=== PATIENT | female | born 1960 | race Caucasian/White ===

== ENCOUNTER 2016-03-27 09:02 | Emergency (ER) | payer BC ==
[~2016-03-27] VITALS: Ht 162.6 cm; Wt 67.0 kg
[2016-03-27 09:06] VITALS: TEMP 36.4; Ht 162.6 cm; Wt 67.0 kg
[2016-03-27] MEDS ORDERED: ASPI81TA28 PO (09:36)
[2016-03-27] MEDS ORDERED: ACETAMINOPHEN 500 MG TAB PO STA (09:39)
[2016-03-27] MEDS ORDERED: IBUPROFEN 200 MG TAB PO STA (09:39)
[2016-03-27 09:51] LABS: BASO % 0.3 %; BASO ABS # 0.02 K/uL (0-0.2); COMPLETE YES; HEMATOCRIT 43.3 % (37-47); IG% 0.3 %; LYMPH % 37.3 %; LYMPH ABS # 2.21 K/uL (1.2-3.4); MEAN CELL VOLUME 91.9 fL (80-100); MEAN CORPUSCULAR HEMOGLOBIN 31.8 pg (25-34); MEAN CORPUSCULAR HGB CONC 34.6 g/dl (32-36); MEAN PLATELET VOLUME 10.5 fL (7.4-10.4); MONO % 8.3 %; NEUT % 50.8 %; PLATELET COUNT 224 K/uL (130-400); RED BLOOD COUNT 4.71 M/uL (4.2-5.4); WHITE BLOOD COUNT 5.92 K/uL (4.8-10.8)
--- NOTE | 2016-03-27 09:58 | EMERGENCY ROOM VISIT NOTE ---
History Report prepared by Robert: Venus Wiggins Under the Supervision of: Dr. Laurie Campuzano M.D. First contact with patient: 09:31 Chief Complaint: SHORTNESS OF BREATH Stated Complaint: CHEST PAIN,SOB,SWEATING Nursing Triage Summary: pt to the ED with right sided chest pain and jaw/teeth pain that started last night and RIZZO with right sided facial numbness and pain that started yesterday afternoon that has gotten better but has not gone away History of Present Illness The patient is a 56 year old female who presents to the Emergency Room with complaints of worsening shortness of breath starting a few months ago. For the past 6 months, the patient has been waking up with severe diaphoresis at night. She also reports intermittent heart palpation. For the past few weeks, she has had increased tiredness. She has worsening shortness of breath with exertion. Last night, part of the right side of her face became numb for a few minutes. Yesterday, she started having pain and swelling in lower extremities. She also had an episode of dizziness yesterday. She has had a headache occurring for the past 3 days. Last week, she had a chest CT with contrast with normal results. She also had a test for blood clots with normal results. She travels from [place] to [place] every week. She denies any stress tests. The patient currently denies any pain but continues to complain of difficulty breathing. The patient denies any blood thinners. She has a history of high cholesterol. She denies any personal history of heart or lung disease. She has family history of aneurysms. The patient currently denies any chest pain, abdominal pain, or any other complaints. Source of History: patient Onset: a few months ago Position: other (global) Symptom Intensity: No pain Quality: other (shortness of breath) Timing: worsening Modifying Factors (Worsening): exertion Associated Symptoms: + headache, + numbness, No abdominal pain, No chest pain Review of Systems See HPI for pertinent positives & negatives. A total of 10 systems reviewed and were otherwise negative. Past Medical & Surgical Medical Problems: (1) H/O parathyroid disease (2) High cholesterol Surgical Problems: (1) Hx of tonsillectomy Family History Aneurysm FH: cancer FH: heart disease Social History Smoking Status: Never Smoker Alcohol Use: none Marital Status: in relationship Occupation Status: employed Current/Historical Medications Scheduled Aspirin (Aspirin Ec), 3 TAB PO DAILY Allergies Coded Allergies: Gluten (Verified Allergy, Mild, rash, h/a, 06/13/15) Food Additives (Verified Allergy, Unknown, redness, ichting,congestion,he, bloating, 06/13/15) Sulfites (Verified Allergy, Unknown, redness,itching, 06/13/15) Physical Exam Vital Signs Date Time Temp Pulse Resp B/P Pulse Ox O2 Delivery O2 Flow Rate FiO2 03/27/16 15:19 79 18 105/72 95 03/27/16 13:29 79 16 126/82 03/27/16 12:30 64 118/87 98 03/27/16 12:00 60 18 100/67 96 03/27/16 10:44 62 16 98/77 97 03/27/16 10:33 97 Room Air 03/27/16 10:32 68 110/74 95 Room Air 03/27/16 10:23 77 99 Room Air 03/27/16 09:57 60 104/72 03/27/16 09:56 60 104/72 70 117/73 85 109/80 03/27/16 09:15 78 03/27/16 09:06 36.4 88 16 118/83 97 Room Air Physical Exam CONSTITUTIONAL: Mildly anxious HEENT: No icterus, moist mucous membranes NECK: No meningismus, trachea is midline. CARDIOVASCULAR: Regular rate, normal perfusion RESPIRATORY: Unlabored breathing. Clear to auscultation. GASTROINTESTINAL: Non-tender GENITOURINARY: No flank tenderness MUSCULOSKELETAL: Full range of motion NEUROLOGIC: No acute gross focal deficits. PSYCHIATRIC: Normal affect SKIN: Normal for ethnicity. Medical Decision & Procedures ER Provider Diagnostic Interpretation: X-ray results as stated below per interpretation by me and the radiologist. CHEST ONE VIEW PORTABLE CLINICAL HISTORY: Chest pain and shortness of breath COMPARISON STUDY: 06/13/2015 FINDINGS: The cardiac and mediastinal contours are normal. There is no evidence of focal pulmonary consolidation. There is no evidence of failure. No pleural effusions are visualized.[ IMPRESSION: No active disease in the chest. Electronically signed by: Janes Belle M.D. 03/27/2016 10:36 AM Dictated Date/Time: 03/27/2016 10:[address] results as stated below per my review and radiologist interpretation. CT HEAD WITHOUT CONTRAST (CT) CLINICAL HISTORY: Severe headache COMPARISON STUDY: 04/27/2011 TECHNIQUE: Axial CT of the brain is performed from the vertex to the skull base. IV contrast was not administered for this examination. CT DOSE: 614.27 mGy.cm FINDINGS: No intra or extra-axial mass lesions are visualized. There is no CT evidence of acute cortical infarction. There is no evidence of midline shift. There is no acute hemorrhage. No calvarial fractures are visualized. There is no evidence of pathologic ventricular dilatation. There is no evidence of acute sinusitis IMPRESSION: No acute intracranial findings Electronically signed by: Janes Belle M.D. 03/27/2016 10:18 AM Dictated Date/Time: 03/27/2016 10:18 AM Laboratory Results 03/27/16 09:14 Red Blood Count 4.71, Mean Corpuscular Volume 91.9, Mean Corpuscular Hemoglobin 31.8, Mean Corpuscular Hemoglobin Concent 34.6, Mean Platelet Volume 10.5, Neutrophils (%) (Auto) 50.8, Lymphocytes (%) (Auto) 37.3, Monocytes (%) (Auto) 8.3, Eosinophils (%) (Auto) 3.0, Basophils (%) (Auto) 0.3, Neutrophils # (Auto) 3.00, Lymphocytes # (Auto) 2.21, Monocytes # (Auto) 0.49, Eosinophils # (Auto) 0.18, Basophils # (Auto) 0.02 03/27/16 09:14 Test 03/27/16 09:14 03/27/16 11:47 White Blood Count 5.92 K/uL (4.8-10.8) Red Blood Count 4.71 M/uL (4.2-5.4) Hemoglobin 15.0 g/dL (12.0-16.0) Hematocrit 43.3 % (37-47) Mean Corpuscular Volume 91.9 fL (80-100) Mean Corpuscular Hemoglobin 31.8 pg (25-34) Mean Corpuscular Hemoglobin Concent 34.6 g/dl (32-36) Platelet Count 224 K/uL (130-400) Mean Platelet Volume 10.5 fL (7.4-10.4) Neutrophils (%) (Auto) 50.8 % Lymphocytes (%) (Auto) 37.3 % Monocytes (%) (Auto) 8.3 % Eosinophils (%) (Auto) 3.0 % Basophils (%) (Auto) 0.3 % Neutrophils # (Auto) 3.00 K/uL (1.4-6.5) Lymphocytes # (Auto) 2.21 K/uL (1.2-3.4) Monocytes # (Auto) 0.49 K/uL (0.11-0.59) Eosinophils # (Auto) 0.18 K/uL (0-0.5) Basophils # (Auto) 0.02 K/uL (0-0.2) RDW Standard Deviation 42.6 fL (36.4-46.3) RDW Coefficient of Variation 12.6 % (11.5-14.5) Immature Granulocyte % (Auto) 0.3 % Immature Granulocyte # (Auto) 0.02 K/uL (0.00-0.02) Prothrombin Time 10.4 SECONDS (9.0-12.0) Prothromb Time International Ratio 1.0 (0.9-1.1) Activated Partial Thromboplast Time 26.4 SECONDS (21.0-31.0) Partial Thromboplastin Ratio 1.0 D-Dimer < 190 ug/L FEU (0-500) Anion Gap 10.0 mmol/L (3-11) Est Creatinine Clear Calc Drug Dose 79.8 ml/min Estimated GFR () 104.0 Estimated GFR (Non- 89.7 BUN/Creatinine Ratio 18.3 (10-20) Calcium Level 8.8 mg/dl (8.5-10.1) Magnesium Level 1.9 mg/dl (1.8-2.4) Total Bilirubin 0.5 mg/dl (0.2-1) Direct Bilirubin 0.1 mg/dl (0-0.2) Aspartate Amino Transf (AST/SGOT) 15 U/L (15-37) Alanine Aminotransferase (ALT/SGPT) 27 U/L (12-78) Alkaline Phosphatase 54 U/L (45-117) Total Protein 7.0 gm/dl (6.4-8.2) Albumin 3.9 gm/dl (3.4-5.0) Troponin I < 0.015 ng/ml (0-0.045) Labs reviewed by ED physician. Medications Administered Medications (Trade) Dose Ordered Sig/Drea Route Start Time Stop Time Status Last Admin Dose Admin Acetaminophen (Tylenol Tab) 1,000 mg NOW STAT PO 03/27/16 09:39 03/27/16 09:45 DC 03/27/16 09:54 1,000 MG Ibuprofen (Advil Tab) 400 mg NOW STAT PO 03/27/16 09:39 03/27/16 09:45 DC 03/27/16 09:55 400 MG Aspirin (Aspirin Chew) 81 mg STK-MED ONCE .ROUTE 03/27/16 11:23 03/27/16 11:25 DC 03/27/16 11:23 81 MG ECG Indication: SOB/dyspnea Rate (beats per minute): 68 Rhythm: sinus rhythm Findings: nonspecific-ST abn, no ectopy, other (Normal axis) ED Course 0931: Past medical records reviewed. The patient was evaluated in room A03. A complete history and physical examination was performed. 0939: Advil Tab 400 mg PO, Tylenol Tab 1000 mg PO 0954: I discussed the patient's case with Dr. Victoria, flight communications specialist with [facility]. 1123: Aspirin 81 mg PO 1301: The patient will receive a stress test. 1308: Upon reexamination the patient is resting comfortably. I discussed results and treatment plan with the patient. She verbalizes agreement and understanding. The patient is ready for discharge. Medical Decision Differential diagnosis includes but is not limited to heart disease, anxiety, PE , viral syndrome. 56-year-old presented to the emergency department for evaluation of episodes of diaphoresis, especially at night for several months as well as exertional dyspnea. She notes she has seen her primary doctor and had a negative CT scan for pulmonary embolus. Review of systems notable for headache for the last 3 days. Patient has particular concern over commuting and trouble accessing care. This 56-year-old female is noted to not have had a previous cardiac evaluation. EKG and troponin within normal limits. Dr. Victoria, cardiology, kindly came to the emergency room to evaluate patient and subsequent stress testing was normal. Patient advised to follow-up with her primary doctor. Consults Time Called: 49 Consulting Physician: Dr. Victoria, flight communications specialist with [facility] Returned Call: [phone] I discussed the patient's case with Dr. Victoria, flight communications specialist with [facility]. Impression Primary Impression: Dyspnea Scribe Attestation The scribe's documentation has been prepared under my direction and personally reviewed by me in its entirety. I confirm that the note above accurately reflects all work, treatment, procedures, and medical decision making performed by me. Departure Information Dispostion Being Evaluated By Hospitalist Referrals Emmanuel Ojeda MD (PCP) Patient Instructions [facility]
[2016-03-27 10:05] LABS: ALT/SGPT 27 U/L (12-78); AST/SGOT 15 U/L (15-37); BLOOD UREA NITROGEN 14 mg/dl (7-18); BUN/CREATININE RATIO 18.3 (10-20); CALCIUM 8.8 mg/dl (8.5-10.1); CARBON DIOXIDE 29 mmol/L (21-32); CHLORIDE 105 mmol/L (98-107); CREATININE 0.75 mg/dl (0.60-1.20); GLUCOSE 98 mg/dl (70-99); MAGNESIUM 1.9 mg/dl (1.8-2.4); POTASSIUM 3.6 mmol/L (3.5-5.1); SODIUM 144 mmol/L (136-145)
[2016-03-27 10:10] LABS: ALKALINE PHOSPHATASE 54 U/L (45-117)
--- NOTE | 2016-03-27 10:20 | DIAGNOSTIC IMAGING REPORT ---
CT HEAD WITHOUT CONTRAST (CT) CLINICAL HISTORY: Severe headache COMPARISON STUDY: 04/27/2011 TECHNIQUE: Axial CT of the brain is performed from the vertex to the skull base. IV contrast was not administered for this examination. CT DOSE: 614.27 mGy.cm FINDINGS: No intra or extra-axial mass lesions are visualized. There is no CT evidence of acute cortical infarction. There is no evidence of midline shift. There is no acute hemorrhage. No calvarial fractures are visualized. There is no evidence of pathologic ventricular dilatation. There is no evidence of acute sinusitis IMPRESSION: No acute intracranial findings Electronically signed by: Janes Belle M.D. 03/27/2016 10:18 AM Dictated Date/Time: 03/27/2016 10:18 AM
[2016-03-27 10:32] LABS: PROTHROMBIN TIME (PATIENT) 10.4 SECONDS (9.0-12.0)
[2016-03-27 10:33] VITALS: O2SAT 97
[2016-03-27] MEDS ORDERED: ASPIRIN 324 MG CHEW PO STA (10:37)
--- NOTE | 2016-03-27 10:38 | DIAGNOSTIC IMAGING REPORT ---
CHEST ONE VIEW PORTABLE CLINICAL HISTORY: Chest pain and shortness of breath COMPARISON STUDY: 06/13/2015 FINDINGS: The cardiac and mediastinal contours are normal. There is no evidence of focal pulmonary consolidation. There is no evidence of failure. No pleural effusions are visualized.[ IMPRESSION: No active disease in the chest. Electronically signed by: Janes Belle M.D. 03/27/2016 10:36 AM Dictated Date/Time: 03/27/2016 10:36 AM
[2016-03-27] MEDS ORDERED: ASPIRIN 81 MG CHEW ONE (11:23)
--- NOTE | 2016-03-27 14:25 | EXERCISE STRESS ECHO ---
*NOTICE TO RECEIVING [employer] This information is strictly Confidential and protected under [place] law. [place] law prohibits you from making any further disclosure of this information unless further disclosure is expressly permitted by the written consent of the person to whom it pertains or is authorized by law. A general authorization for the release of medical or other information is not sufficient for this purpose. Hospital accepts no responsibility if the information is made available to any other person, INCLUDING THE PATIENT. Interpretation Summary * Name: DIANA GARIBAY Study Date: 03/27/2016 12:28 PM BP: 101/72 mmHg * Patient Location: ED HR: 59 * : 1960 (M/d/yyyy) Gender: Female Height: 64 in * Age: 56 yrs Ethnicity: CA Weight: 147 lb * Ordering Physician: Laurie Campuzano * Referring Physician: MEME * Performed By: Dayami Sims RDCS * * Reason For Study: CHEST PAIN, SOB * BSA: 1.7 m2 * History: CHEST PAIN, SOB * -- Conclusions -- * Normal stress echocardiogram at 8.0 METS and a peak heart rate of 85% maximum predicted. * No exercise induced chest pain. * No EKG changes. * Baseline echocardiogram notes normal left ventricular systolic function. Procedure Details * ECHOEX, CPT #25121 Left Ventricle * The left ventricle is normal in size. * There is normal left ventricular wall thickness. * Ejection Fraction = 60-65%. * Resting wall motion: Normal. Stress wall motion: Appropriate increase in Left ventricular systolic function and decrease in cavity size. No stress induced segmental wall motion abnormalities. Stress Parameters * Normal baseline electrocardiogram. * Stress ECG: No ST changes. No arrhythmias. * The stress portion of this study was personally supervised by the undersigned interpreting physician. * Rest heart rate was '59' BPM. * Rest blood pressure was '101/72' * Maximum heart rate achieved was 139 bpm. * Maximum heart rate was 84 % of maximum age-predicted heart rate. * Maximum blood pressure was '132/78' * Total exercise time was '7:14' * Maximum exercise MET level achieved was '8.90' METS * Maximum treadmill speed was '3.40' miles per hour. * Maximum treadmill elevation was '14.00'% grade. * Exercise was terminated due to 'ACHIEVING TARGET HR' MMode 2D Measurements and Calculations LVAd ap4 25.0 cm\S\2 LVLd ap4 7.6 cm EDV(MOD-sp4) 69.1 ml EDV(sp4-el) 70.3 ml LVAs ap4 13.8 cm\S\2 LVLs ap4 6.2 cm ESV(MOD-sp4) 27.7 ml ESV(sp4-el) 26.0 ml EF(MOD-sp4) 59.9 % EF(sp4-el) 63.0 % LVAd ap2 23.9 cm\S\2 LVLd ap2 7.8 cm EDV(MOD-sp2) 61.1 ml EDV(sp2-el) 62.0 ml LVAs ap2 12.8 cm\S\2 LVLs ap2 6.1 cm ESV(MOD-sp2) 23.9 ml ESV(sp2-el) 22.9 ml EF(MOD-sp2) 60.9 % EF(sp2-el) 63.1 % LVLd %diff 3.1 % EDV(MOD-bp) 66.6 ml LVLs %diff -2.36 % ESV(MOD-bp) 25.7 ml EF(MOD-bp) 61.4 % SV(MOD-sp4) 41.4 ml SI(MOD-sp4) 24.1 ml/m\S\2 SV(MOD-sp2) 37.2 ml SI(MOD-sp2) 21.7 ml/m\S\2 SV(MOD-bp) 40.9 ml SI(MOD-bp) 23.8 ml/m\S\2 SV(sp4-el) 44.3 ml SI(sp4-el) 25.8 ml/m\S\2 SV(sp2-el) 39.1 ml SI(sp2-el) 22.8 ml/m\S\2 Doppler Measurements and Calculations TR max isela 199.5 cm/sec
--- NOTE | 2016-03-27 14:50 | CARDIOLOGY CONSULTATION ---
DATE OF CONSULTATION: 03/27/2016 CONSULTATION REQUESTED BY: Dr. Campuzano. REASON FOR CONSULTATION: Chest discomfort. HISTORY OF PRESENT ILLNESS: Ms. Rankin is a very pleasant 56-year-old woman who presented to [facility] Emergency Department today with a complaint of jaw discomfort and dyspnea with exertion. The patient states that her symptoms started several months ago. Initially, began with dyspnea on exertion, which she chalked up to lung disease secondary to occupational exposure to saw dust. The patient travels in between [place] and [place] and was most recently seen by her physician in [place], where she was told she had no lung problems, but was recommended that she see a cook fishing vessel. The patient states that ever since then, her dyspnea has been significantly worsening to the point where now she is becoming more and more short of breath with less and less activity. Now, she states that any activity whatsoever will make her short of breath. Associated with this shortness of breath, there is also chest discomfort. She states that over the last month or so, she states that whenever she exerts herself, she will get a concomitant chest discomfort. She describes it as right-sided heaviness sensation that was associated with diaphoresis, nausea, and occasional lightheadedness. She states that she kept putting off getting evaluated because she thought that if it was from her heart she would get chest discomfort on the left side. Her symptoms progressed to the point where last night, she developed a funny feeling in her jaw associated with chest discomfort and dyspnea with exertion, which was new and she finally came into the Emergency Department to be evaluated. In the Emergency Department, her EKG was unremarkable, initial troponin was negative and cardiology was consulted. Currently, she states that she is still having some slight tightness at rest and overall, just feels fatigued and worn down. PAST SURGICAL HISTORY: 1. Uterine embolization. 2. Parathyroidectomy. MEDICAL ILLNESSES: 1. Seasonal allergies. 2. Colon polyp. 3. History of Lyme disease. FAMILY HISTORY: Remarkable for mother of aneurysm in her 60s. She states that multiple people on her mother's family had aneurysms as well. Denies any premature coronary artery disease or sudden cardiac . SOCIAL HISTORY: The patient denies any tobacco use. Drinks occasional alcohol. Denies any recreational drug use. She is . She has 1 child, who is in good health. 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 She does not exercise. REVIEW OF SYSTEMS: As per HPI, all other review of systems reviewed and negative at this time. ALLERGIES: No known drug allergies. MEDICATIONS: Denies. PHYSICAL EXAMINATION: VITALS: Temperature afebrile, pulse 62, respiratory rate 12, and blood pressure 90/77. GENERAL: Awake, alert, and oriented x3, in no acute distress. HEENT: Normocephalic and atraumatic. Pupils are equal, round, and reactive to light and accommodation. Extraocular muscles intact. Anicteric sclerae. Moist mucous membranes. NECK: No JVD and no bruit. CARDIOVASCULAR: Regular. No S4. Normal S1 and S2. No S3. No murmurs, rubs or gallops. PULMONARY: Clear to auscultation bilaterally. No rales, rhonchi, or wheezing. ABDOMEN: Bowel sounds x4, soft. No rebound, guarding, or tenderness. No organomegaly. EXTREMITIES: No clubbing, cyanosis or edema. +2 pedal pulses bilaterally. SKIN: Warm and dry. TEST RESULTS: A 12-lead EKG performed in the Emergency Department independently reviewed at this time shows normal sinus rhythm at 68 beats per minute, normal axis, normal intervals, no signs of active ischemia, and normal study. Initial blood work shows a troponin of less than 0.015. Sodium 144, potassium 3.6, BUN 14, and creatinine 0.75. IMPRESSION: Likely unstable angina. RECOMMENDATIONS: It was my pleasure to see Ms. Rankin in consultation today. At this time, the patient was counseled that her symptoms are almost textbook presentation for unstable angina. So at this time, a second set of cardiac enzymes will be performed and should remain unremarkable, which I suspect it will, then we will perform a resting echocardiogram and should that be unremarkable, then an exercise stress echocardiogram. Otherwise, the patient will be given 364 mg of aspirin chewed at this time and further recommendations to follow.
[2016-03-27 15:19] VITALS: BP 105/72; PULSE 79; O2SAT 95
== END 2016-03-27 15:21 | disposition home or self-care (01) ==
LOC: C.EDB 09:03 → C.EDA 15:21
DX: R06.00 Dyspnea, unspecified (principal); E78.00 Pure hypercholesterolemia, unspecified; E21.5 Disorder of parathyroid gland, unspecified; Z98.890 Other specified postprocedural states; Z88.2 Allergy status to sulfonamides; Z91.018 Allergy to other foods; Z79.82 Long term (current) use of aspirin; Z82.49 Family history of ischemic heart disease and other diseases of the circulatory system; Z80.9 Family history of malignant neoplasm, unspecified

== ENCOUNTER 2017-06-12 10:00 | Observation (INO) | payer BC, OTHER ==
[~2017-06-12] VITALS: Ht 165.1 cm; Wt 67.0 kg
[~2017-06-12 10:00] MED LIST: ASPI81TA28 PO
[2017-06-12] MEDS ORDERED: SODIUM CHLORIDE 0.9% 1000ML 1,000 ML IV SCH ×2 (10:36→14:54)
[2017-06-12] MEDS ORDERED: SLEEPING PILL PO (10:49)
[2017-06-12 11:28] LABS: BASO % 0.1 %; BASO ABS # 0.01 K/uL (0-0.2); EOS % 0.6 %; EOS ABS # 0.04 K/uL (0-0.5); HEMATOCRIT 41.1 % (37-47); HEMOGLOBIN 14.3 g/dL (12.0-16.0); IG# 0.01 K/uL (0.00-0.02); LYMPH % 16.9 %; LYMPH ABS # 1.17 K/uL (1.2-3.4); MEAN CELL VOLUME 91.9 fL (80-100); MEAN CORPUSCULAR HGB CONC 34.8 g/dl (32-36); MEAN PLATELET VOLUME 10.7 fL (7.4-10.4); MONO % 4.5 %; MONO ABS # 0.31 K/uL (0.11-0.59); NEUT % 77.8 %; NEUT ABS # 5.37 K/uL (1.4-6.5); PLATELET COUNT 231 K/uL (130-400); RED CELL DISTRIBUTION WIDTH CV 12.4 % (11.5-14.5); RED CELL DISTRIBUTION WIDTH SD 41.9 fL (36.4-46.3); WHITE BLOOD COUNT 6.91 K/uL (4.8-10.8)
[2017-06-12 11:38] LABS: INR 0.9 (0.9-1.1); PTT PATIENT 23.5 SECONDS (21.0-31.0)
[2017-06-12 11:45] LABS: BLOOD UREA NITROGEN 16 mg/dl (7-18); CALCIUM 9.4 mg/dl (8.5-10.1); CARBON DIOXIDE 27 mmol/L (21-32); CREATININE 0.72 mg/dl (0.60-1.20); GLUCOSE 111 mg/dl (70-99); POTASSIUM 4.2 mmol/L (3.5-5.1); SODIUM 134 mmol/L (136-145)
--- NOTE | 2017-06-12 11:47 | DIAGNOSTIC IMAGING REPORT ---
HEAD WITHOUT CONTRAST (CT) CT DOSE: 537.48 mGy.cm HISTORY: Mental status change Stroke TECHNIQUE: Multiaxial CT images of the head were performed without the use of intravenous contrast. A dose lowering technique was utilized adhering to the principles of ALARA. Comparison: 03/27/2016 Findings: The paranasal sinuses and mastoid air cells are clear. The calvarium and skull base are intact. The ventricles and sulci are within normal limits. There is no mass, hematoma, midline shift, or acute infarct. Impression: No acute intracranial abnormality. The above report was generated using voice recognition software. It may contain grammatical, syntax or spelling errors. Electronically signed by: Parrish Drake M.D. 06/12/2017 11:45 AM Dictated Date/Time: 06/12/2017 11:45 AM
[2017-06-12 11:50] LABS: CKMB < 0.5 ng/ml (0.5-3.6)
[2017-06-12] MEDS ORDERED: OPTIRAY 320 IV PRN (13:45)
--- NOTE | 2017-06-12 14:01 | DIAGNOSTIC IMAGING REPORT ---
ABD/PELVIS IV CONTRAST ONLY CT DOSE: 291.24 mGy.cm HISTORY: Pain LLQ pain, x2-3 months TECHNIQUE: Multiaxial CT images of the abdomen and pelvis were performed following the use of intravenous contrast. A dose lowering technique was utilized adhering to the principles of ALARA. COMPARISON STUDY: None. FINDINGS: The lung bases are clear. The liver, spleen, gallbladder, pancreas, kidneys, and adrenal glands are within normal limits. No bowel wall thickening or obstruction. The pelvic organs are unremarkable. No suspicious lytic or blastic osseous lesions. Mild increase in colonic fecal load. No obstructive change. Several small calcified uterine fibroids IMPRESSION: No significant abnormality identified within the abdomen or pelvis. Mild increase in fecal load within the colon suggestive of mild fecal stasis. Several small calcified uterine fibroids. The above report was generated using voice recognition software. It may contain grammatical, syntax or spelling errors. Electronically signed by: Parrish Drake M.D. 06/12/2017 2:00 PM Dictated Date/Time: 06/12/2017 1:58 PM
--- NOTE | 2017-06-12 14:02 | History and Physical ---
History & Physical Date & Time of Service: Jun 12, 2017 at 14:01 Chief Complaint: Numbness In Face,Nausea,Disoriented,Dry Mouth Primary Care Physician: Emmanuel Ojeda MD History of Present Illness Source: patient, family Patient is a 57-year-old female with PMH of hyperparathyroidism S/P resection, vitamin D deficiency, insomnia, ? Multiple sclerosis, H/O Lyme's disease, Fibroid Uterus and other problems presents with history of Stroke like symptoms- headache, facial numbness, dizziness, balance issues and dysarthria. Patient noticed having headache, dizziness, transient blurry vision, balance issues when she woke up at around 5AM this morning. She noticed having difficulty with ambulation while going to bathroom. Denies any history of fall, head trauma, weakness in extremities, incontinence, vertigo, neck stiffness. She returned back to sleep and noticed facial numbness at around 8AM. Describes headache as "Flash like", sharp pain which only lasted few minutes. Also reports transient period of having dysarthria. States all the symptoms resolved currently expect that she still has mild numbness on right side of face and right leg numbness. She took 2 baby aspirin prior to ED visit. She reports having MRI brain per recommendation from her Neurologist 2-3 weeks ago which was unchanged from prior MRI. Reports chronic LLQ abdominal pain.Denies any tick bite. Also denies any history of chest pain, SOB, pedal edema, cough, wheezing, fever, LOC, facial deformity, vomiting, diarrhea, dysuria, recent change in medications. Past Medical/Surgical History Medical Problems: (1) Contusion of rib on left side (2) Dyspnea (3) H/O parathyroid disease (4) High cholesterol Surgical Problems: (1) Hx of tonsillectomy Family History Aneurysm FH: cancer FH: heart disease Mother: aneurysm Social History Smoking Status: Never Smoker Alcohol Use: socially Drug Use: other (Denies but has Positive screen for Marjuavana ) Marital Status: in relationship Housing status: lives alone Occupational Status: employed Allergies Coded Allergies: Gluten (Verified Allergy, Mild, rash, h/a, 06/12/17) Food Additives (Verified Allergy, Unknown, redness, ichting,congestion,he, bloating, 06/12/17) Sulfites (Verified Allergy, Unknown, redness,itching, 06/12/17) Home Medications Scheduled Cholecalciferol (Vitamin D3), 1 TAB PO DAILY [Sleeping Pill], 1 TAB PO DAILY Review of Systems See HPI for pertinent positives & negatives. A total of 10 systems reviewed and were otherwise negative. Physical Exam Vital Signs Date Time Temp Pulse Resp B/P (MAP) Pulse Ox O2 Delivery O2 Flow Rate FiO2 06/12/17 13:25 82 16 103/76 97 Room Air 06/12/17 12:37 92 20 111/79 98 Room Air 06/12/17 11:49 82 20 115/76 99 Room Air 06/12/17 11:00 76 20 130/85 99 Room Air 06/12/17 10:26 77 06/12/17 10:12 98 Room Air 06/12/17 10:04 36.8 80 18 154/98 100 Room Air General Appearance: WD/WN, no apparent distress Head: normocephalic, atraumatic Eyes: normal inspection, PERRL, EOMI, sclerae normal ENT: normal ENT inspection, hearing grossly normal Neck: supple, trachea midline Respiratory/Chest: chest non-tender, lungs clear, normal breath sounds, no respiratory distress, no accessory muscle use Cardiovascular: regular rate, rhythm, no edema, no murmur Abdomen/GI: normal bowel sounds, non tender, soft, + tenderness (mild LLQ) Back: normal inspection Extremities/Musculoskelatal: normal inspection, no pedal edema Neurologic/Psych: plc engineer II-XII nml as tested, alert, oriented x 3, + pertinent finding (Grossly no focal deficits, Mild right facial and RLE numbness ) Skin: normal color, warm/dry Diagnostics Laboratory Results Results Past 24 Hours Test 06/12/17 11:00 06/12/17 11:15 Range/Units White Blood Count 6.91 4.8-10.8 K/uL Red Blood Count 4.47 4.2-5.4 M/uL Hemoglobin 14.3 12.0-16.0 g/dL Hematocrit 41.1 37-47 % Mean Corpuscular Volume 91.9 80-100 fL Mean Corpuscular Hemoglobin 32.0 25-34 pg Mean Corpuscular Hemoglobin Concent 34.8 32-36 g/dl Platelet Count 231 130-400 K/uL Mean Platelet Volume 10.7 7.4-10.4 fL Neutrophils (%) (Auto) 77.8 % Lymphocytes (%) (Auto) 16.9 % Monocytes (%) (Auto) 4.5 % Eosinophils (%) (Auto) 0.6 % Basophils (%) (Auto) 0.1 % Neutrophils # (Auto) 5.37 1.4-6.5 K/uL Lymphocytes # (Auto) 1.17 1.2-3.4 K/uL Monocytes # (Auto) 0.31 0.11-0.59 K/uL Eosinophils # (Auto) 0.04 0-0.5 K/uL Basophils # (Auto) 0.01 0-0.2 K/uL RDW Standard Deviation 41.9 36.4-46.3 fL RDW Coefficient of Variation 12.4 11.5-14.5 % Immature Granulocyte % (Auto) 0.1 % Immature Granulocyte # (Auto) 0.01 0.00-0.02 K/uL Prothrombin Time 9.5 9.0-12.0 SECONDS Prothromb Time International Ratio 0.9 0.9-1.1 Activated Partial Thromboplast Time 23.5 21.0-31.0 SECONDS Partial Thromboplastin Ratio 0.9 Sodium Level 134 136-145 mmol/L Potassium Level 4.2 3.5-5.1 mmol/L Chloride Level 103 98-107 mmol/L Carbon Dioxide Level 27 21-32 mmol/L Anion Gap 4.0 3-11 mmol/L Blood Urea Nitrogen 16 7-18 mg/dl Creatinine 0.72 0.60-1.20 mg/dl Est Creatinine Clear Calc Drug Dose 78.5 ml/min Estimated GFR () 108.5 Estimated GFR (Non- 93.6 BUN/Creatinine Ratio 21.8 10-20 Random Glucose 111 70-99 mg/dl Calcium Level 9.4 8.5-10.1 mg/dl Magnesium Level 2.1 1.8-2.4 mg/dl Total Creatine Kinase 79 26-192 U/L Creatine Kinase MB < 0.5 0.5-3.6 ng/ml Creatine Kinase MB Ratio 0-3.0 Troponin I < 0.015 0-0.045 ng/ml Thyroid Stimulating Hormone (TSH) 0.670 0.300-4.500 uIu/ml Lyme Disease IgG Antibody NEG NEG Lyme Disease IgM Antibody NEG NEG Urine Color DK YELLOW Urine Appearance CLEAR CLEAR Urine pH >= 9.0 4.5-7.5 Urine Specific [place] 1.022 1.000-1.030 Urine Protein NEG NEG Urine Glucose (UA) NEG NEG Urine Ketones NEG NEG Urine Occult Blood NEG NEG Urine Nitrite NEG NEG Urine Bilirubin NEG NEG Urine Urobilinogen NEG NEG Urine Leukocyte Esterase TRACE NEG Urine WBC (Auto) 1-5 0-5 /hpf Urine RBC (Auto) 0-4 0-4 /hpf Urine Hyaline Casts (Auto) 0 0-5 /lpf Urine Epithelial Cells (Auto) 5-10 0-5 /lpf Urine Bacteria (Auto) NEG NEG Urine Opiates Screen NEG NEG Urine Methadone, Qualitative NEG NEG Urine Barbiturates NEG NEG Urine Phencyclidine (PCP) Level NEG NEG Ur Amphetamine/Methamphetamine NEG NEG MDMA (Ecstasy) Screen NEG NEG Urine Benzodiazepines Screen NEG NEG Urine Cocaine Metabolite NEG NEG Urine Marijuana (THC) POS NEG Diagnostic Radiology CT head: No acute intracranial abnormality. CT ABD: No significant abnormality identified within the abdomen or pelvis. Mild increase in fecal load within the colon suggestive of mild fecal stasis. Several small calcified uterine fibroids. EKG EKG: NSR, No signs of Ischemia Impression Assessment and Plan Stroke Like Symptoms: R/O CVA: Not a candidate for tPA Admit in Tele CT head: showed no acute pathology Stroke work up including lipid panel, A1C, MRI Brain, MRA Head/Neck, ECHO Speech and swallow eval Start aspirin, Lipitor Appreciate Neurology Input Neuro checks PT/OT Check Orthostatics, B12 levels Fall precautions Chronic LLQ abdominal pain: unclear etiology CT ABD: mild fecal stasis. Several small calcified uterine fibroids. Bowel regimen May need colonoscopy as outpatient ? History of Multiple sclerosis Obtain old records H/O hyperparathyroidism S/P resection DVT Px: SCDs Code Status: Full Code Disposition: Plan to discharge home when stable Resuscitation Status VTE Prophylaxis Will order VTE Prophylaxis: Yes
--- NOTE | 2017-06-12 14:53 | EMERGENCY ROOM VISIT NOTE ---
ED Visit Note First contact with patient: 10:18 Chief Complaint: Headache and facial numbness. History of Present Illness: Ms. Rankin is a 66-year-old white female who ambulates into the ED accompanied by a male friend complaining of facial numbness, headache, dizziness and nausea. Historically patient denies any previous significant past medical history and no recent head trauma. She does report for the last ongoing 2 months she has been having intermittent left lower quadrant pain. Patient reports she was feeling well yesterday and went to bed. She reports she awoke today with an acute onset of a headache. She reports her pain has been ongoing since 5 AM, 5 hours ago. She reports that the onset of her headache she did get out of bed to go to the bathroom and reported that she was having dizziness and difficulty ambulating because she felt her balance was off ; she expresses these the sensations of disorientation that she was having. Patient places her headache at the top of the head. She describes her pain as an achiness sensation. She rates her discomfort 3/10 but does report her pain does wax and wane in intensity. She has not identified any aggravating or alleviating factors related to this discomfort. She has not taken any medications for her discomfort prior to arrival at the hospital. Associated with her symptoms she also reports she had she has ongoing dizziness, and bilateral facial numbness in the area surrounding the nose and jaw, she feels like her eye muscles are not synchronized, she reports she is straining to find the right words to say before speaking, she is nauseated but has not vomited and she is having bilateral lower leg weakness sensations. She does reports she took aspirin which has subsequently relieved her headache but not her other symptoms. She denies fevers, chills, sweats, skin eruptions, skin color changes, upper respiratory tract symptoms, chest pain, shortness of breath, palpitations, abdominal pain, diarrhea, constipation, back/flank pain, genital paresthesias, bowel and bladder dysfunction, extremity numbness/tingling. Review of Systems: As noted above in history of present illness. All body systems were reviewed and found to be negative as noted above. Past Medical History: Frequent urinary tract infections, parathyroid disease, dyslipidemia, status post D&C and ovarian cyst removal. Current Medications: Unspecified sleeping pills. Allergies to Medications: Gluten. Social History: Patient is currently employed; she feels safe in her home environment; she denies tobacco use and admits to alcohol use. Physical Examination: Vital Signs: GENERAL: 57-year-old female in mild distress due to symptoms, nontoxic-appearing , afebrile and hemodynamically stable. NEUROLOGICAL: Awake, alert and oriented to person, place and time. Answering questions appropriately and following commands. Normal gait. Good hand eye coordination. Romberg test negative. Pronator drift test negative. Cranial nerves II through XII grossly intact. Normal rapid alternating movements of the hands and fingers. Able to spell backwards but not able to count backwards. Good long-term but poor short-term recall. SKIN: Warm, dry and pink. Face: Patient has a maxine erythematous rash over her face including the bilateral frontal area, the zygomatic arch area, and the bilateral mandibular/maxillary area. The skin does not appear cellulitic. It is not hot to the touch. In the area shows no lymphangitis. HEENT: Atraumatic and normocephalic. Rashes noted above in SKIN. No tenderness over the frontal or maxillary sinuses. External ears are nontender. Auditory canals are pink and patent. Tympanic membranes are pearly kurtz with normal light reflex. No tenderness or erythema over the mastoid processes. PERRLA. EOMI without nystagmus. No light sensitivity. Funduscopic examination is unremarkable with a normal-appearing optic disc and no signs of increased intracranial pressure. Sclera white and conjunctiva pink. No drainage from naris. Oral cavity moist and pink. Airway is patent. Pharynx is nonerythematous or edematous. Speech normal and clear.. No lymphadenopathy. Trachea midline. No jugular venous distention. No carotid bruits. BACK: No tenderness over the bony spine. No nuchal rigidity or meningismus. Full range of motion of the cervical spine. No CVA tenderness. THORAX: Lungs sounds are clear to auscultation and equal bilaterally with symmetrical chest wall. No wheezing, rales or rhonchi. No crepitus, tenderness , subcutaneous air or deformities noted. HEART: Regular rate and rhythm. No gallops, rubs or murmurs are appreciated. ABDOMEN: Flat, soft and nontender. Positive bowel sounds in all quadrants. No guarding, rigidity or organomegaly. EXTREMITIES: Moves all extremities well on command and with purpose. All distal neurovascular statuses are intact and equal bilaterally. No calf tenderness or cords. 4/5 muscle strength in all movements of upper and lower extremities. ED Course: Patient is assessed as noted above. Patient's location list was reviewed. Laboratory Testing: Test 06/12/17 11:00 06/12/17 11:15 Range/Units White Blood Count 6.91 4.8-10.8 K/uL Red Blood Count 4.47 4.2-5.4 M/uL Hemoglobin 14.3 12.0-16.0 g/dL Hematocrit 41.1 37-47 % Mean Corpuscular Volume 91.9 80-100 fL Mean Corpuscular Hemoglobin 32.0 25-34 pg Mean Corpuscular Hemoglobin Concent 34.8 32-36 g/dl Platelet Count 231 130-400 K/uL Mean Platelet Volume 10.7 7.4-10.4 fL Neutrophils (%) (Auto) 77.8 % Lymphocytes (%) (Auto) 16.9 % Monocytes (%) (Auto) 4.5 % Eosinophils (%) (Auto) 0.6 % Basophils (%) (Auto) 0.1 % Neutrophils # (Auto) 5.37 1.4-6.5 K/uL Lymphocytes # (Auto) 1.17 1.2-3.4 K/uL Monocytes # (Auto) 0.31 0.11-0.59 K/uL Eosinophils # (Auto) 0.04 0-0.5 K/uL Basophils # (Auto) 0.01 0-0.2 K/uL RDW Standard Deviation 41.9 36.4-46.3 fL RDW Coefficient of Variation 12.4 11.5-14.5 % Immature Granulocyte % (Auto) 0.1 % Immature Granulocyte # (Auto) 0.01 0.00-0.02 K/uL Prothrombin Time 9.5 9.0-12.0 SECONDS Prothromb Time International Ratio 0.9 0.9-1.1 Activated Partial Thromboplast Time 23.5 21.0-31.0 SECONDS Partial Thromboplastin Ratio 0.9 Sodium Level 134 136-145 mmol/L Potassium Level 4.2 3.5-5.1 mmol/L Chloride Level 103 98-107 mmol/L Carbon Dioxide Level 27 21-32 mmol/L Anion Gap 4.0 3-11 mmol/L Blood Urea Nitrogen 16 7-18 mg/dl Creatinine 0.72 0.60-1.20 mg/dl Est Creatinine Clear Calc Drug Dose 78.5 ml/min Estimated GFR () 108.5 Estimated GFR (Non- 93.6 BUN/Creatinine Ratio 21.8 10-20 Random Glucose 111 70-99 mg/dl Calcium Level 9.4 8.5-10.1 mg/dl Magnesium Level 2.1 1.8-2.4 mg/dl Total Creatine Kinase 79 26-192 U/L Creatine Kinase MB < 0.5 0.5-3.6 ng/ml Creatine Kinase MB Ratio 0-3.0 Troponin I < 0.015 0-0.045 ng/ml Thyroid Stimulating Hormone (TSH) 0.670 0.300-4.500 uIu/ml Lyme Disease IgG Antibody NEG NEG Lyme Disease IgM Antibody NEG NEG Urine Color DK YELLOW Urine Appearance CLEAR CLEAR Urine pH >= 9.0 4.5-7.5 Urine Specific [place] 1.022 1.000-1.030 Urine Protein NEG NEG Urine Glucose (UA) NEG NEG Urine Ketones NEG NEG Urine Occult Blood NEG NEG Urine Nitrite NEG NEG Urine Bilirubin NEG NEG Urine Urobilinogen NEG NEG Urine Leukocyte Esterase TRACE NEG Urine WBC (Auto) 1-5 0-5 /hpf Urine RBC (Auto) 0-4 0-4 /hpf Urine Hyaline Casts (Auto) 0 0-5 /lpf Urine Epithelial Cells (Auto) 5-10 0-5 /lpf Urine Bacteria (Auto) NEG NEG Urine Opiates Screen NEG NEG Urine Methadone, Qualitative NEG NEG Urine Barbiturates NEG NEG Urine Phencyclidine (PCP) Level NEG NEG Ur Amphetamine/Methamphetamine NEG NEG MDMA (Ecstasy) Screen NEG NEG Urine Benzodiazepines Screen NEG NEG Urine Cocaine Metabolite NEG NEG Urine Marijuana (THC) POS NEG Head CT: Was reviewed by myself and read by the radiologist showing no acute intracranial abnormalities. IV Contrast Abdominal/Pelvic CT: Was reviewed by myself and read by the radiologist showing no significant abnormalities identified within the abdomen or pelvis. Mild increase in fecal load and several small calcified uterine fibroids. Patient was hydrated with normal saline and she was offered pain medications and antinausea medications and refused. EKG: Was read by myself and shows normal sinus rhythm with a ventricular rate of 68 bpm. Normal axis, intervals and complexes. No acute ST changes indicating ischemia, injury or infarction. Medical records were reviewed and no previous EKGs were available for comparison. On reevaluation of pain she requested that a CT of her abdomen to be performed for her ongoing left lower quadrant pain; see report as noted above. Patient was reassessed multiple times during her stay in the emergency department. Patient's case was reviewed with Dr. Ray; we agreed on diagnostic approach, treatment, disposition and plan. Patient's case was consulted with case management and Dr. Kira Macdonald, neurology; she recommended observation/admission stay, antiplatelet therapy and head MRI; these were discussed with the patient and she accepted all these therapies. Patient's case was consulted with Dr. Santana, [facility] hospitalist, for medical observation/admission. Patient was educated about today's findings. Clinical Impression: Facial numbness. Headache, resolved. Dizziness. Decision-Making: Initially my differential diagnosis I considered CVA, TIA, electrolyte abnormality, metabolic dysfunction, Lyme's disease, and other causes. Disposition and Plan: Patient be [facility] for medical observation/admission; please see their notes and orders for final disposition and plan.
[2017-06-12] MEDS ORDERED: ONDANSETRON INJ 2 MG/ML 2 ML VIAL IV PRN (15:00)
[2017-06-12] MEDS ORDERED: ACETAMINOPHEN 325 MG TAB PO PRN (15:00)
[2017-06-12] MEDS ORDERED: PHARMACIST DISCHARGE MED REC CONSULT PRN (15:15)
[2017-06-12] MEDS ORDERED: CHOL1000 PO (15:15)
[2017-06-12] MEDS ORDERED: POLYETHYLENE (MIRALAX) 17 GM PACK PO PRN (15:15)
[2017-06-12] MEDS ORDERED: DOCUSATE SODIUM 100 MG CAP PO PRN (15:15)
[2017-06-12] MEDS ORDERED: IV FLUIDS COMPLETED PRN (16:00)
--- NOTE | 2017-06-12 16:08 | DIAGNOSTIC IMAGING REPORT ---
MRA HEAD WITHOUT CONTRAST HISTORY: Stroke - Attention to [place] TECHNIQUE: 3-D [id number] MRA of the brain was performed without contrast. COMPARISON STUDY: None. FINDINGS: Visualized intracranial internal carotid arteries, distal vertebral arteries, and basilar artery are widely patent. There is no significant stenosis, occlusion, or aneurysm seen within the bilateral ACAs, MCAs, or senior account executive. IMPRESSION: No significant stenosis, occlusion, or aneurysm within the [place]. The above report was generated using voice recognition software. It may contain grammatical, syntax or spelling errors. Electronically signed by: Parrish Drake M.D. 06/12/2017 4:07 PM Dictated Date/Time: 06/12/2017 4:06 PM
[2017-06-12] MEDS ORDERED: GADAVIST IV PRN (16:30)
--- NOTE | 2017-06-12 16:45 | DIAGNOSTIC IMAGING REPORT ---
BRAIN COMBO CLINICAL HISTORY: Stroke mental status change COMPARISON STUDY: None TECHNIQUE: Utilizing a 1.5 Deborah magnet and dedicated coil, multiplanar, multiecho imaging of the brain was performed pre and postcontrast administration. IV administration of 7.5 mL of Gadavist contrast was uneventful. FINDINGS: Normal configuration of the anterior middle and posterior cerebral circulation. [place] is unremarkable. No midline shift. No significant stenotic change or aneurysm. IMPRESSION: Normal study. The above report was generated using voice recognition software. It may contain grammatical, syntax or spelling errors. Electronically signed by: Parrish Drake M.D. 06/12/2017 4:44 PM Dictated Date/Time: 06/12/2017 4:41 PM
--- NOTE | 2017-06-12 16:47 | DIAGNOSTIC IMAGING REPORT ---
MRA NECK COMBO HISTORY: Mental status change Stroke TECHNIQUE: [id number] and gadolinium-enhanced MRA of the neck was performed both before and after the intravenous administration of contrast. All measurements were calculated based on NASCET criteria. COMPARISON STUDY: None. FINDINGS: The aortic arch and proximal great vessels are widely patent. There is no significant stenosis, occlusion, or dissection identified within the bilateral common carotid, internal carotid, or vertebral arteries. IMPRESSION: No significant stenosis, occlusion, or dissection identified within the carotid or vertebral arteries. The above report was generated using voice recognition software. It may contain grammatical, syntax or spelling errors. Electronically signed by: Parrish Drake M.D. 06/12/2017 4:46 PM Dictated Date/Time: 06/12/2017 4:44 PM
[2017-06-12] MEDS ORDERED: SODIUM CHLORIDE 0.9% 1000ML 1,000 ML IV ONE (17:20)
[2017-06-12 17:29] VITALS: BP 116/86; PULSE 70; TEMP 36.7; Ht 165.1 cm; Wt 67.0 kg
[2017-06-12 19:26] VITALS: BP 104/68; PULSE 81; TEMP 36.9; O2SAT 97
[2017-06-12 22:55] VITALS: BP_SYST 100; BP_SYST 107; BP_SYST 109; BP_DIAS 70; BP_DIAS 73; PULSE 66; PULSE 80; PULSE 93; TEMP 36.5; O2SAT 96
[2017-06-13] VITALS (7 sets, daily range): BP systolic 110–125; BP diastolic 68–84; PULSE 61–76; TEMP 36.4–36.9; O2SAT 91–98
[2017-06-13] MEDS ORDERED: AMITRIPTYLINE HCL 10 MG TAB PO ONE (00:45)
[2017-06-13 06:50] LABS: BASO % 0.2 %; BASO ABS # 0.01 K/uL (0-0.2); EOS % 2.2 %; EOS ABS # 0.11 K/uL (0-0.5); HEMOGLOBIN 13.6 g/dL (12.0-16.0); LYMPH % 46.9 %; MEAN CELL VOLUME 92.8 fL (80-100); MEAN CORPUSCULAR HEMOGLOBIN 31.6 pg (25-34); MEAN PLATELET VOLUME 10.1 fL (7.4-10.4); MONO % 10.2 %; NEUT % 40.5 %; NEUT ABS # 1.98 K/uL (1.4-6.5); PLATELET COUNT 203 K/uL (130-400); RED CELL DISTRIBUTION WIDTH CV 12.6 % (11.5-14.5); RED CELL DISTRIBUTION WIDTH SD 43.2 fL (36.4-46.3)
[2017-06-13 07:28] LABS: CALCIUM 8.1 mg/dl (8.5-10.1); CREATININE 0.53 mg/dl (0.60-1.20); POTASSIUM 3.9 mmol/L (3.5-5.1)
--- NOTE | 2017-06-13 08:24 | Progress Note ---
Internal Med Progress Note Date of Service: Jun 13, 2017. Provider Documentation: SUBJECTIVE: Seen and examined at bedside Feels much better today Numbness in RLE resolved Minimal right sided facial numbness (has chronic numbness per patient) Denies weakness, dysarthria, dysphagia, weakness, chest pain, SOB No other complaints OBJECTIVE: Vital Signs-as noted below Physical Exam: General Appearance:Moderately built and nourished, no apparent distress Head: normocephalic, Atraumatic Eyes: normal inspection, EOMI, PERRL Neck: supple, Trachea midline Respiratory/Chest: Normal breath sounds, CTA Cardiovascular: S1, S2, No murmur Abdomen/GI:Soft, Non tender, Bowel sounds present Extremities/Musculoskelatal:normal inspection, no edema Neurologic/Psych:AAOX3, grossly no focal neurological deficits Skin: normal color, warm Lab data as noted below. ASSESSMENT & PLAN: Stroke Like Symptoms: R/O CVA: Not a candidate for tPA CT head: showed no acute pathology MRI Brain: Normal study. Head MRA: No significant stenosis, occlusion, or aneurysm within the [place]. Neck MRA: No significant stenosis, occlusion, or dissection identified within the carotid or vertebral arteries TSH: Normal Lyme screen: negative A1C: pending ECHO: no ASD B 12 levels: normal Speech and swallow eval done Continue aspirin Appreciate Neurology Input Neuro checks PT/OT Fall precautions Orthostatics: negative Advised to follow up with her Neurologist upon discharge Patient prefers to follow up with her PCP (Not ) as [place] Patient does not prefer to be started on statins currently Chronic LLQ abdominal pain: unclear etiology CT ABD: mild fecal stasis. Several small calcified uterine fibroids. Bowel regimen May need colonoscopy as outpatient ? History of Multiple sclerosis Obtain old records H/O hyperparathyroidism S/P resection DVT Px: SCDs Code Status: Full Code Disposition: Plan to discharge home today Follow up with your Primary care physician in 1 week as advised Follow up with your Neurologist in 2-4 weeks as advised Take Aspirin 81 mg daily Seek immediate medical attention if your symptoms reoccur or worsen Vital Signs: Date Time Temp Pulse Resp B/P (MAP) Pulse Ox O2 Delivery O2 Flow Rate FiO2 06/13/17 11:50 36.9 64 20 120/77 (91) 96 06/13/17 10:26 76 98 06/13/17 08:00 97 Room Air 06/13/17 07:55 36.4 61 18 124/84 (97) 97 06/13/17 06:14 36.6 65 18 110/70 (83) 96 Room Air 06/13/17 04:00 Room Air 06/12/17 23:59 Room Air 06/12/17 22:55 36.5 66 18 109/70 (83) 96 Room Air 80 107/70 (82) 93 100/73 (82) 06/12/17 20:00 Room Air 06/12/17 19:26 36.9 81 16 104/68 (80) 97 Room Air 06/12/17 17:29 36.7 70 18 116/86 Room Air 06/12/17 16:38 72 20 114/76 98 Room Air 06/12/17 15:40 76 20 110/72 98 Room Air 06/12/17 14:46 82 20 109/94 98 Room Air Lab Results: Results Past 24 Hours Test 06/13/17 06:07 Range/Units White Blood Count 4.90 4.8-10.8 K/uL Red Blood Count 4.31 4.2-5.4 M/uL Hemoglobin 13.6 12.0-16.0 g/dL Hematocrit 40.0 37-47 % Mean Corpuscular Volume 92.8 80-100 fL Mean Corpuscular Hemoglobin 31.6 25-34 pg Mean Corpuscular Hemoglobin Concent 34.0 32-36 g/dl Platelet Count 203 130-400 K/uL Mean Platelet Volume 10.1 7.4-10.4 fL Neutrophils (%) (Auto) 40.5 % Lymphocytes (%) (Auto) 46.9 % Monocytes (%) (Auto) 10.2 % Eosinophils (%) (Auto) 2.2 % Basophils (%) (Auto) 0.2 % Neutrophils # (Auto) 1.98 1.4-6.5 K/uL Lymphocytes # (Auto) 2.30 1.2-3.4 K/uL Monocytes # (Auto) 0.50 0.11-0.59 K/uL Eosinophils # (Auto) 0.11 0-0.5 K/uL Basophils # (Auto) 0.01 0-0.2 K/uL RDW Standard Deviation 43.2 36.4-46.3 fL RDW Coefficient of Variation 12.6 11.5-14.5 % Immature Granulocyte % (Auto) 0.0 % Immature Granulocyte # (Auto) 0.00 0.00-0.02 K/uL Sodium Level 141 136-145 mmol/L Potassium Level 3.9 3.5-5.1 mmol/L Chloride Level 111 98-107 mmol/L Carbon Dioxide Level 25 21-32 mmol/L Anion Gap 5.0 3-11 mmol/L Blood Urea Nitrogen 16 7-18 mg/dl Creatinine 0.53 0.60-1.20 mg/dl Est Creatinine Clear Calc Drug Dose 106.7 ml/min Estimated GFR () 123.0 Estimated GFR (Non- 106.1 BUN/Creatinine Ratio 29.3 10-20 Random Glucose 88 70-99 mg/dl Calcium Level 8.1 8.5-10.1 mg/dl Triglycerides Level 151 0-150 mg/dl Cholesterol Level 205 0-200 mg/dl HDL Cholesterol 59 mg/dl LDL Cholesterol, Calculated 116 mg/dl VLDL Cholesterol, Calculated 30 mg/dl Cholesterol/HDL Ratio 3.5 Vitamin B12 Level 344 211-911 pg/mL
[2017-06-13] MEDS ORDERED: ATORVASTATIN 40 MG TAB PO SCH (09:00)
[2017-06-13] MEDS ORDERED: ASPIRIN 81 MG ECTAB PO SCH (09:00)
--- NOTE | 2017-06-13 10:00 | ECHOCARDIOGRAM REPORT ---
*NOTICE TO RECEIVING CONSTITUTION PARTY AGENCY This information is strictly Confidential and protected under [place] law. [place] law prohibits you from making any further disclosure of this information unless further disclosure is expressly permitted by the written consent of the person to whom it pertains or is authorized by law. A general authorization for the release of medical or other information is not sufficient for this purpose. Hospital accepts no responsibility if the information is made available to any other person, INCLUDING THE PATIENT. Interpretation Summary * Name: DIANA GARIBAY Study Date: 06/13/2017 06:46 AM BP: 124/84 mmHg * Patient Location: .2E\S\E203\S\1 HR: 63 * : 1960 (M/d/yyyy) Gender: Female Height: 65 in * Age: 57 yrs Ethnicity: [place] Weight: 141 lb * Ordering Physician: Joel Santana * Referring Physician: Self, Referred * Performed By: Dayami Sims RDCS * * Reason For Study: STROKE LIKE SYMPTOMS * BSA: 1.7 m2 * -- Conclusions -- * The left ventricle is normal in size. * Left ventricular systolic function is normal. * Ejection Fraction = 60-65%. * The right ventricular systolic function is normal. * The left atrial size is normal. * Right atrial size is normal. * The interatrial septum is intact with no evidence for an atrial septal defect. * Injection of contrast documented no interatrial shunt. * No significant valvular pathology. Procedure Details * A saline contrast injection was performed to assess for cardiac shunting. * The injection was performed through an intravenous line in the right arm. * The attending nurse who injected the saline contrast was MARY ANN HARRINGTON RN. * A total of 20 cc of agitated saline was given. Left Ventricle * The left ventricle is normal in size. * There is normal left ventricular wall thickness. * Ejection Fraction = 60-65%. * Left ventricular systolic function is normal. Right Ventricle * The right ventricle is normal size. * The right ventricular systolic function is normal. Atria * The left atrial size is normal. * Right atrial size is normal. * The interatrial septum is intact with no evidence for an atrial septal defect. * Injection of contrast documented no interatrial shunt. Mitral Valve * The mitral valve is normal in structure and function. Tricuspid Valve * The tricuspid valve anatomy is normal. * There is mild tricuspid regurgitation. Aortic Valve * The aortic valve is normal in structure and function. Pulmonic Valve * The pulmonic valve is not well visualized. Great Vessels * The aortic root and proximal ascending aorta are normal sized. Pericardium/Pleural * There is no pericardial effusion. MMode 2D Measurements and Calculations IVSd 1.1 cm IVSs 1.5 cm LVIDd 4.5 cm LVIDs 3.0 cm LVPWd 1.0 cm LVPWs 1.5 cm IVS/LVPW 1.1 FS 33.4 % EDV(Teich) 93.2 ml ESV(Teich) 35.3 ml EF(Teich) 62.2 % EDV(cubed) 92.1 ml ESV(cubed) 27.3 ml EF(cubed) 70.4 % % IVS thick 31.1 % % LVPW thick 52.8 % LV mass(C)d 168.9 grams LV mass(C)dI 99.0 grams/m\S\2 LV mass(C)s 160.3 grams LV mass(C)sI 94.0 grams/m\S\2 SV(Teich) 57.9 ml SI(Teich) 34.0 ml/m\S\2 SV(cubed) 64.8 ml SI(cubed) 38.0 ml/m\S\2 Ao root diam 3.5 cm Ao root area 9.5 cm\S\2 LA dimension 3.7 cm LA/Ao 1.1 LVAd ap4 25.4 cm\S\2 LVLd ap4 7.5 cm EDV(MOD-sp4) 72.9 ml EDV(sp4-el) 72.7 ml LVAs ap4 14.8 cm\S\2 LVLs ap4 6.6 cm ESV(MOD-sp4) 31.5 ml ESV(sp4-el) 28.4 ml EF(MOD-sp4) 56.8 % EF(sp4-el) 61.0 % LVAd ap2 25.8 cm\S\2 LVLd ap2 7.9 cm EDV(MOD-sp2) 68.9 ml EDV(sp2-el) 71.2 ml LVAs ap2 14.6 cm\S\2 LVLs ap2 6.8 cm ESV(MOD-sp2) 28.5 ml ESV(sp2-el) 26.8 ml EF(MOD-sp2) 58.6 % EF(sp2-el) 62.3 % LVLd %diff 5.4 % EDV(MOD-bp) 73.8 ml LVLs %diff 3.4 % ESV(MOD-bp) 30.5 ml EF(MOD-bp) 58.6 % SV(MOD-sp4) 41.4 ml SI(MOD-sp4) 24.3 ml/m\S\2 SV(MOD-sp2) 40.4 ml SI(MOD-sp2) 23.7 ml/m\S\2 SV(MOD-bp) 43.3 ml SI(MOD-bp) 25.4 ml/m\S\2 SV(sp4-el) 44.3 ml SI(sp4-el) 26.0 ml/m\S\2 SV(sp2-el) 44.3 ml SI(sp2-el) 26.0 ml/m\S\2 Doppler Measurements and Calculations MV E max isela 60.2 cm/sec MV A max isela 38.5 cm/sec MV E/A 1.6 MV dec time 0.33 sec Ao V2 max 122.6 cm/sec Ao max PG 6.0 mmHg Ao max PG (full) 1.0 mmHg LV V1 max PG 5.0 mmHg LV V1 max 111.7 cm/sec TR max isela 200.6 cm/sec
--- NOTE | 2017-06-13 12:55 | NEUROLOGY CONSULTATION ---
DATE OF CONSULTATION: 06/13/2017 REASON FOR CONSULTATION: Stroke-like symptoms. HISTORY OF PRESENT ILLNESS: Mrs. Rankin is a 57-year-old right-handed female with a history of hyperparathyroidism, status post resection, vitamin D deficiency, remote history of possible Lyme, and fibroid uterus. Upon awakening yesterday morning, the patient had an ice pick headache, a brief stabbing, which was at the vertex which lasted several seconds and was not exertional. She has been experiencing those types of headaches for several months. When she attempted to ambulate, she felt off balance, but did not have any true vertigo. She has some constant numbness in the right face and felt this extended periorally and on the nose bilaterally and had more tingling in her right arm and right leg. She had some difficulty with concentration and finding the right words and she felt like she might choke and that her voice was hoarse. For the most part, this lasted approximately 6 hours and resolved, was not accompanied by any additional or persistent headache or altered consciousness. In 2009, the patient had vertigo and some right facial numbness, which prompted an MRI of the brain which showed some nonspecific changes in the white matter. An MRI of the spine was performed and ultimately a lumbar puncture at that time, I believe to exclude Lyme as well as multiple sclerosis. As a baseline, she does note that she has some constant numbness in the right face that she can have a hoarse voice. She can sometimes have difficulty swallowing and has seen ear, nose, and throat for that as well. The patient is followed by Dr. Vincent Kumari at [facility] who is a multiple sclerosis neurologist. She has had serial MRIs of the brain over time which have been unchanged. The last imaging done in [place] was 2-3 months ago and she had a lumbar puncture about 2 years ago which was negative for Lyme and multiple sclerosis, it was a challenging lumbar puncture with 10 attempts and she has had some chronic back pain and sacroiliac and iliac crest pain since that time. She has been well, although very busy because she is about to go to [place] for a year. She was extremely fatigued yesterday, although had no symptoms of infection. She has had some left lower quadrant pain for several months, has not had any chest pain, shortness of breath, cough, wheezing, fever, vomiting, diarrhea, dysuria. In terms of any possible history of multiple sclerosis, she has never had optic neuritis, sudden blindness, double vision, electrical facial pain, Lhermitte's phenomenon. PAST MEDICAL HISTORY: Rib contusion, parathyroid disease, hyperlipidemia, not on medication. PAST SURGICAL HISTORY: Parathyroidectomy, tonsillectomy. FAMILY HISTORY: Mother had an abdominal aortic aneurysm, DVT, cerebrovascular disease. Father of a malignant brain tumor in his 50s. A sister with MS. A sister with seizure. A sister with breast cancer. She has 1 child who is well. ALLERGIES: ENVIRONMENTAL, FOOD ADDITIVES, GLUTENS, AND SULFITES. HOME MEDICINES: Vitamin D3 and a sleeping pill. FAMILY HISTORY: She does not smoke, rarely drinks alcohol. She had a positive tox screen for marijuana, but indicates she believes this to be secondhand smoke. 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 DIAGNOSTIC DATA: Her MRI of the brain shows no acute abnormalities. There are nonspecific changes in the white matter which for the most part are not periventricular. MRA of the head and neck did not show any significant stenosis. Echocardiography did not show a shunt or any significant abnormality. Her labs were notable only for an LDL of 116, triglycerides 151, total cholesterol of 205. Her calcium was 8.1. Urinalysis, trace leukocyte esterase, 5-10 epithelial cells. Toxicology positive for marijuana. Serology negative for Lyme. PHYSICAL EXAMINATION: VITAL SIGNS: The patient has been normotensive with the exception of on admission when her blood pressure was 154/98. 36.4, 76, 18, 124/84, 98%. GENERAL: The patient is awake and alert. She is an excellent historian. There is normal speech and language and her affect is appropriate. NECK: There are no carotid bruits. HEART: No heart murmurs. Heart is regular in rate and rhythm. LUNGS: Clear. MUSCULOSKELETAL: There is no palpable abnormality of the lumbar spine or the sacroiliac region. NEUROLOGIC: Pupils are equal. Optic nerves are difficult to visualize. There is no afferent pupillary defect, normal horn and motility. There is decreased sensation in right V2 and V3. Face is symmetric. Speech and language are normal. Motor 5/5, no drift. Normal rapid alternating movements. There may be patchy decreased sensation to light touch and temperature in the right arm and right leg. Reflexes symmetric. Toes downgoing. [id number] and [id number] normal. Gait, tandem, Romberg normal. IMPRESSION: The patient with nonspecific changes in the white matter which have been radiographically stable over time with some persistent and intermittent instability, numbness in the right face, episodic hoarse voice, difficulty swallowing without clear neurologic diagnosis. I suspect that the exacerbation for lack of a better phrase is related to fatigue. Radiographically we see no evidence of infarct, no acute lesions ,and no evidence of significant cerebrovascular disease, no cardiac source. She does have some nonspecific white matter changes which could be vascular. She really lacks much in terms of vascular risk factors. I would recommend taking an enteric-coated 81 mg aspirin daily, consider statin therapy. If she were radiographically to have an acute event, I would consider further workup including workup for hypercoagulable state and cardiac monitoring. I do not think this is necessary at this point. It would be quite a stretch to call this an acephalgic complicated migraine. I do not think it is seizure. I do not believe she has multiple sclerosis, although I guess it is possible she has had a monophasic event at one point consistent with that, it does not sound like that is the case. Finally, the patient sounds as if she has ice pick headaches which is more commonly seen in patients with migraine. There is no evidence on MRA of the head of aneurysm. We spoke about prophylaxis for that and I do not think she needs that. I will see her back as needed. JANEEN
[2017-06-13] MEDS ORDERED: AMT10 PO ×2 (13:32→13:35)
[2017-06-13] MEDS ORDERED: ASPI-320 PO (13:32)
--- NOTE | 2017-06-13 13:34 | Discharge Summary ---
Discharge Summary Date of Service Jun 13, 2017. Discharge Summary Admission Date: Jun 12, 2017 at 15:07 Discharge Date: Jun 13, 2017 Discharge Disposition: Home Principal Diagnosis: Stroke like symptoms Procedures: MRI Brain: Normal study. Head MRA: No significant stenosis, occlusion, or aneurysm within the [place]. Neck MRA: No significant stenosis, occlusion, or dissection identified within the carotid or vertebral arteries. CT ABD: No significant abnormality identified within the abdomen or pelvis. Mild increase in fecal load within the colon suggestive of mild fecal stasis. Several small calcified uterine fibroids. CT head: No acute intracranial abnormality. ECHO: * The left ventricle is normal in size. * Left ventricular systolic function is normal. * Ejection Fraction = 60-65%. * The right ventricular systolic function is normal. * The left atrial size is normal. * Right atrial size is normal. * The interatrial septum is intact with no evidence for an atrial septal defect. * Injection of contrast documented no interatrial shunt. * No significant valvular pathology. Consultations: Neurology Pending Studies/Follow-Up: Follow up with your Primary care physician in 1 week as advised Follow up with your Neurologist in 2-4 weeks as advised Take Aspirin 81 mg daily Seek immediate medical attention if your symptoms reoccur or worsen Medication Reconciliation New Medications: Aspirin (Aspirin EC Low Dose) 81 Mg Ectab 81 MG PO QAM for 30 Days, #30 EA Continued Medications: Amitriptyline HCl (Amitriptyline HCl) 10 Mg Tab 10 MG PO HS Cholecalciferol (Vitamin D3) 1,000 Unit Tab 1 TAB PO DAILY for 30 Days, #30 TAB 5 Refills Discontinued Medications: [Sleeping Pill] () 1 TAB PO DAILY Admission Information HPI (per Admitting provider): Patient is a 57-year-old female with PMH of hyperparathyroidism S/P resection, vitamin D deficiency, insomnia, ? Multiple sclerosis, H/O Lyme's disease, Fibroid Uterus and other problems presents with history of Stroke like symptoms- headache, facial numbness, dizziness, balance issues and dysarthria. Patient noticed having headache, dizziness, transient blurry vision, balance issues when she woke up at around 5AM this morning. She noticed having difficulty with ambulation while going to bathroom. Denies any history of fall, head trauma, weakness in extremities, incontinence, vertigo, neck stiffness. She returned back to sleep and noticed facial numbness at around 8AM. Describes headache as "Flash like", sharp pain which only lasted few minutes. Also reports transient period of having dysarthria. States all the symptoms resolved currently expect that she still has mild numbness on right side of face and right leg numbness. She took 2 baby aspirin prior to ED visit. She reports having MRI brain per recommendation from her Neurologist 2-3 weeks ago which was unchanged from prior MRI. Reports chronic LLQ abdominal pain.Denies any tick bite. Also denies any history of chest pain, SOB, pedal edema, cough, wheezing, fever, LOC, facial deformity, vomiting, diarrhea, dysuria, recent change in medications. Physical Exam (per Admitting): General Appearance: WD/WN, no apparent distress Head: normocephalic, atraumatic Eyes: normal inspection, PERRL, EOMI, sclerae normal ENT: normal ENT inspection, hearing grossly normal Neck: supple, trachea midline Respiratory/Chest: chest non-tender, lungs clear, normal breath sounds, no respiratory distress, no accessory muscle use Cardiovascular: regular rate, rhythm, no edema, no murmur Abdomen/GI: normal bowel sounds, non tender, soft, + tenderness (mild LLQ) Back: normal inspection Extremities/Musculoskelatal: normal inspection, no pedal edema Neurologic/Psych: keg washer II-XII nml as tested, alert, oriented x 3, + pertinent finding (Grossly no focal deficits, Mild right facial and RLE numbness ) Skin: normal color, warm/dry Hospital Course Stroke Like Symptoms: R/O CVA: Not a candidate for tPA CT head: showed no acute pathology MRI Brain: Normal study. Head MRA: No significant stenosis, occlusion, or aneurysm within the [place] of [place]. Neck MRA: No significant stenosis, occlusion, or dissection identified within the carotid or vertebral arteries TSH: Normal Lyme screen: negative A1C: pending ECHO: no ASD B 12 levels: normal Speech and swallow eval done Continue aspirin Appreciate Neurology Input Neuro checks PT/OT Fall precautions Orthostatics: negative Advised to follow up with her Neurologist upon discharge Patient prefers to follow up with her PCP (Not ) as she is travelling out of [place] Patient does not prefer to be started on statins currently Chronic LLQ abdominal pain: unclear etiology CT ABD: mild fecal stasis. Several small calcified uterine fibroids. Bowel regimen May need colonoscopy as outpatient ? History of Multiple sclerosis Obtain old records H/O hyperparathyroidism S/P resection DVT Px: SCDs Code Status: Full Code Disposition: Plan to discharge home today Follow up with your Primary care physician in 1 week as advised Follow up with your Neurologist in 2-4 weeks as advised Take Aspirin 81 mg daily Seek immediate medical attention if your symptoms reoccur or worsen Total time spent on discharge = This includes examination of the patient, discharge planning, medication reconciliation, and communication with other providers. Discharge Instructions Discharge Instructions Date of Service Jun 13, 2017. Admission Reason for Admission: Stroke-Like Symptoms Discharge Discharge Diagnosis / Problem: Stroke like symptoms Discharge Goals Goal(s): Decrease discomfort, Improve function Activity Recommendations Activity Limitations: resume your previous activity Exercise/Sports Limitations: as tolerated . Instructions / Follow-Up Instructions / Follow-Up Follow up with your Primary care physician in 1 week as advised Follow up with your Neurologist in 2-4 weeks as advised Take Aspirin 81 mg daily Seek immediate medical attention if your symptoms reoccur or worsen Current Hospital Diet Patient's current hospital diet: Vegetarian Diet, Gluten Free Diet Discharge Diet Recommended Diet: Gluten Free Diet, Vegetarian Diet Pending Studies Studies pending at discharge: yes List of pending studies: Hb A1C Laboratory Results Hemoglobin A1c Test 06/12/17 11:00 Range/Units Lipid Panel Test 06/13/17 06:07 Range/Units Triglycerides Level 151 H 0-150 mg/dl Cholesterol Level 205 H 0-200 mg/dl HDL Cholesterol 59 mg/dl Cholesterol/HDL Ratio 3.5 LDL Cholesterol, Calculated 116 mg/dl Medical Emergencies . Who to Call and When: Medical Emergencies: If at any time you feel your situation is an emergency, please call 911 immediately. . Non-Emergent Contact Non-Emergency issues call your: Primary Care Provider, Neurologist Call Non-Emergent contact if: you have a fever, your pain is not controlled, your pain is worsening, your pain is unusual for you, your pain is concerning you, you have any medication questions . . "Provider Documentation" section prepared by Joel Santana. .
[2017-06-13] MEDS ORDERED: AMITRIPTYLINE HCL 10 MG TAB PO SCH (21:00)
[2017-06-14 06:29] LABS: HEMOGLOBIN A1C 5.3 % (4.5-5.6)
== END 2017-06-13 14:28 | disposition home or self-care (01) ==
LOC: C.EDB 10:01 → C.2E 15:07 → EDBEDREQ 15:14 → ENRESERV 15:45 → CANRESERV 15:45 → ENRESERV 15:48
PROVIDERS: ADMIT Internal Medicine; ATTEND Internal Medicine
DX: R20.0 Anesthesia of skin (principal); R51 Headache; R42 Dizziness and giddiness; E55.9 Vitamin D deficiency, unspecified; E89.2 Postprocedural hypoparathyroidism; G47.00 Insomnia, unspecified; E78.00 Pure hypercholesterolemia, unspecified; R10.32 Left lower quadrant pain; E78.5 Hyperlipidemia, unspecified; Z82.3 Family history of stroke; Z80.3 Family history of malignant neoplasm of breast